=== PATIENT | female | born 1930 | race Caucasian/White ===

== ENCOUNTER → 2016-07-05 | Outpatient (REF) ==
[~2016-07-05] MED LIST: ACTOS 15MG TAB15 MG PO; ASPI325T6 PO; BETIMOL 5 ML5 ML OU; CALCIUM 600 PLU1 TAB PO; COLACE 100100 MG/CAP PO; DULCOLAX S10 MG/SUPP RC; FERROUS SU325 MG/TAB PO; FORTAMET500 M1 PO; HCTZ 25MG TAB25 MG PO; IRON325 M2 PO; MILK OF MA400 MG/52 PO; NAPROSYN 2250 MG/TAB PO; TYLENOL 325MG325 MG PO; XALATAN EYE DROPS OU
== END ==
LOC: ZLAB.WCH 15:41
DX: Z01.89 Encounter for other specified special examinations (principal)

== ENCOUNTER → 2017-02-11 | Outpatient (REF) | LOC: ZLAB.WCH 08:46 | DX: Z01.89 Encounter for other specified special examinations (principal) ==

== ENCOUNTER → 2017-04-19 | Outpatient (REF) | LOC: ZLAB.WCH 20:53 | DX: Z01.89 Encounter for other specified special examinations (principal) ==

== ENCOUNTER → 2017-08-01 | Outpatient (REF) | LOC: ZLAB.WCH 18:58 | DX: Z01.89 Encounter for other specified special examinations (principal) ==

== ENCOUNTER 2017-12-16 10:37 | Outpatient (CLI) | payer MEDICARE, BC ==
[~2017-12-16] VITALS: Ht 160 cm; Wt 49.1 kg
[2017-12-16 11:18] VITALS: BP 181/46; PULSE 55; TEMP 98
== END 2017-12-16 12:15 | disposition home or self-care (01) ==
LOC: EUO 10:37
DX: M81.0 Age-related osteoporosis without current pathological fracture (principal)
CPT/HCPCS: J3489